=== PATIENT | female | born 1980 | race Caucasian/White ===

== ENCOUNTER → 2024-09-23 13:09 | Outpatient (REF) | payer OTHER, SELFPAY | LOC: HWRAD 13:09 | PROVIDERS: ATTENDING PHYSICIAN Physician Assistant Medical | DX: I95.1 Orthostatic hypotension (principal); N92.0 Excessive and frequent menstruation with regular cycle | CPT/HCPCS: 76830; 76856 ==

== ENCOUNTER 2024-11-06 06:12 | Day surgery (SDC) | payer OTHER, SELFPAY | END 2024-11-06 12:25 | disposition home or self-care (01) | LOC: GI 06:12 | PROVIDERS: ATTENDING PHYSICIAN Internal Medicine | DX: Z12.11 Encounter for screening for malignant neoplasm of colon (principal); D50.9 Iron deficiency anemia, unspecified; K64.8 Other hemorrhoids; K25.9 Gastric ulcer, unspecified as acute or chronic, without hemorrhage or perforation; Q40.2 Other specified congenital malformations of stomach; K31.89 Other diseases of stomach and duodenum; K22.89 Other specified disease of esophagus; K63.5 Polyp of colon; K62.1 Rectal polyp | CPT/HCPCS: 45385; 45380; 43239; 88305; 88342 ==